=== PATIENT | female | born 1950 | race Caucasian/White ===

== ENCOUNTER 2016-10-08 10:36 | Emergency (ER) | payer MEDICARE, OTHER ==
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
[2016-10-08 14:01] VITALS: BP 132/67
== END 2016-10-08 13:58 | disposition home or self-care (01) ==
LOC: ER 10:36
DX: S16.1XXA Strain of muscle, fascia and tendon at neck level, initial encounter (principal); V49.60XA Unspecified car occupant injured in collision with unspecified motor vehicles in traffic accident, initial encounter; N64.59 Other signs and symptoms in breast
CPT/HCPCS: 72040; 99283

== ENCOUNTER → 2016-11-22 | Outpatient (CLI) | payer MEDICARE, OTHER | LOC: RAD 19:08 | PROVIDERS: ATTEND Nurse Practitioner Adult Health | DX: R91.1 Solitary pulmonary nodule (principal) | CPT/HCPCS: 78814; A9552 ==

== ENCOUNTER 2018-06-26 20:32 | Inpatient (IN) | payer MEDICARE, OTHER ==
[2018-06-26] MEDS ORDERED: RINGERS SOLUTION,LACTATED 1,000 ML IV ONE (20:50)
[2018-06-26] MEDS ORDERED: ONDANSETRON HCL INJ/PF 4 MG/2 ML SDV IV ONE (20:50)
[2018-06-26 20:57] LABS: ABSOLUTE EOSINOPHILS # (AUTO) 0.4 10^3/uL (0.0-0.6); ABSOLUTE LYMPHOCYTES (AUTO) 4.7 10^3/uL (0.5-4.7); ABSOLUTE MONOCYTES (AUTO) 0.9 10^3/uL (0.1-1.4); ABSOLUTE NEUT (AUTO) 4.5 10^3/uL (1.7-8.2); BASOPHILS % (AUTO) 0.3 % (0-2); EOSINOPHILS % (AUTO) 3.8 % (0-6); HEMATOCRIT 38.2 % (36.0-47.0); HEMOGLOBIN 13.3 g/dL (12.0-15.5); LYMPHOCYTES % (AUTO) 44.5 % (13-45); MEAN CORPUSCULAR HEMOGLOBIN 29.7 pg (27.0-33.4); MEAN CORPUSCULAR HGB CONC 34.8 g/dL (32.0-36.0); MEAN CORPUSCULAR VOLUME 86 fl (80-97); MONOCYTES % (AUTO) 8.5 % (3-13); PLATELET COUNT 371 10^3/uL (150-450); RED BLOOD COUNT 4.47 10^6/uL (3.72-5.28); RED CELL DISTRIBUTION WIDTH 13.1 % (11.5-14.0); SEGMENTED NEUTROPHILS % (AUTO) 42.9 % (42-78); TOTAL CELLS COUNTED % (AUTO) 100 %; WHITE BLOOD COUNT 10.5 10^3/uL (4.0-10.5)
[2018-06-26 21:10] LABS: ALANINE AMINOTRANSFERASE 27 U/L (9-52); ALBUMIN 4.5 g/dL (3.5-5.0); ALKALINE PHOSPHATASE 92 U/L (38-126); ANION GAP 11 (5-19); ASPARTATE AMINO TRANSFERASE 24 U/L (14-36); BILIRUBIN,DIRECT 0.4 mg/dL (0.0-0.4); BILIRUBIN,TOTAL 0.7 mg/dL (0.2-1.3); BLOOD UREA NITROGEN 24 mg/dL (7-20); CALCIUM 10.2 mg/dL (8.4-10.2); CARBON DIOXIDE 26 mmol/L (22-30); CHLORIDE 104 mmol/L (98-107); GLUCOSE 152 mg/dL (75-110); POTASSIUM 3.6 mmol/L (3.6-5.0); SODIUM 140.6 mmol/L (137-145); TOTAL PROTEIN 7.4 g/dL (6.3-8.2)
[2018-06-26] MEDS ORDERED: METOCLOPRAMIDE HCL INJ/PF 10 MG/2 ML SDV IV ONE (21:18)
--- NOTE | 2018-06-26 23:03 | ER Document Report ---
ED General - General Chief Complaint: Blood Pressure Problem Stated Complaint: DIZZINESS Time Seen by Provider: 06/26/18 20:46 Notes: Patient is a 67 year old female with a past medical history of hypertension, hyperlipidemia, diabetes, who presents with a sudden onset of vomiting and generalized abdominal pain. The patient is a poor historian, appears to be quite uncomfortable, unable to provide meaningful history. Daughter at the bedside reports that the patient was watching her children when the symptoms started. No history of similar symptoms in the past. Nothing seemed to improve or worsen the patient's symptoms. The patient notes a prior history of kidney stones that feels somewhat similar to this presentation. She does describe pain in her abdomen as being mostly towards the left side although generalized as a stabbing, severe pain. She has been unable to keep any fluids down since onset of her vomiting. TRAVEL OUTSIDE OF THE [place] IN LAST 30 DAYS: No - Related Data Allergies/Adverse Reactions: ANTIBACTERIAL SOAP Adverse Reaction (Intermediate, Uncoded 07/12/15 09:29) SKIN IRRITATION Past Medical History - General Information source: Patient - Social History Smoking Status: Current Every Day Smoker Chew tobacco use (# tins/day): No Frequency of alcohol use: None Drug Abuse: None Lives with: Family Family History: Reviewed & Not Pertinent Patient has suicidal ideation: No Patient has homicidal ideation: No - Past Medical History Cardiac Medical History: Reports: Hx Hypercholesterolemia Denies: Hx Coronary Artery Disease, Hx Heart Attack, Hx Hypertension Pulmonary Medical History: Reports: Hx Pneumonia Denies: Hx Asthma, Hx Bronchitis, Hx COPD Neurological Medical History: Denies: Hx Cerebrovascular Accident, Hx Seizures Endocrine Medical History: Reports: Hx Diabetes Mellitus Type 2 Renal/ Medical History: Denies: Hx Peritoneal Dialysis Musculoskeletal Medical History: Reports Hx Arthritis - HANDS Past Surgical History: Reports: Hx Hysterectomy - Immunizations Hx Diphtheria, Pertussis, Tetanus Vaccination: No Review of Systems - Review of Systems Notes: Constitutional: Negative for fever. HENT: Negative for sore throat. Eyes: Negative for visual changes. Cardiovascular: Negative for chest pain. Respiratory: Negative for shortness of breath. Gastrointestinal: Positive for abdominal pain and vomiting Genitourinary: Negative for dysuria. Musculoskeletal: Negative for back pain. Skin: Negative for rash. Neurological: Negative for headaches, weakness or numbness. 10 point ROS negative except as marked above and in HPI. Physical Exam - Vital signs Vitals: Resp 20 06/26/18 20:35 Interpretation: Tachycardic Notes: PHYSICAL EXAMINATION: GENERAL: Appears ill, quite uncomfortable, dry heaving HEAD: Atraumatic, normocephalic. EYES: Pupils equal round and reactive to light, extraocular movements intact, sclera anicteric, conjunctiva are normal. ENT: nares patent, oropharynx clear without exudates. Moderately dry mucous membranes. NECK: Normal range of motion, supple without lymphadenopathy LUNGS: Breath sounds clear to auscultation bilaterally and equal. No wheezes rales or rhonchi. HEART: Regular rate and rhythm without murmurs ABDOMEN: Soft, generalized abdominal tenderness to palpation appears to be most prominent over the left flank, normoactive bowel sounds. No guarding, no rebound. No masses appreciated. EXTREMITIES: Normal range of motion, no pitting or edema. No cyanosis. NEUROLOGICAL: No focal neurological deficits. Moves all extremities spontaneously and on command. PSYCH: Somewhat lethargic SKIN: Warm, Dry, normal turgor, no rashes or lesions noted. Course - Re-evaluation Re-evalutation: 06/26/18 23:01 Patient presents with an abrupt onset of nausea, vomiting, lightheadedness and feeling generally weak. On exam patient is actively vomiting, appears quite uncomfortable, pale, but vitals are within normal limits. She does have some generalized abdominal discomfort without any localization. No prior history of similar presentations in the past. Initially she apparently complained of a headache but now denies. There is a very broad differential in this case, less likely to be an acute subarachnoid hemorrhage or intraparenchymal bleed given the absence of any neurologic deficits in the absence of any ongoing headache. Will obtain a CT of the head to further clarify. 06/27/18 01:18 CT scan of the head is unremarkable. Patient CT scan of the abdomen pelvis does show a large, 1 cm partially obstructing left-sided kidney stone which would account for the patient's abrupt onset of generalized left-sided abdominal pain as well as vomiting. Unfortunately the patient does continue to be unable to tolerate even water despite antiemetics. On my most recent assessment she again vomiting. She is also requiring IV analgesia to maintain pain control. I have contacted the urologist wafer fabrication operator and I am awaiting callback. 06/27/18 02:28 has has returned my phone call, states the patient will require operative intervention. I have discussed with who has accepted for admission. - Vital Signs Vital signs: Temp Pulse Resp BP Pulse Ox 97.8 F 72 15 94/72 L 94 06/27/18 02:14 06/26/18 20:39 06/27/18 02:01 06/27/18 02:00 06/27/18 02:01 - Laboratory Result Diagrams: 06/26/18 20:30 06/26/18 20:30 Laboratory results interpreted by me: 06/26/18 06/27/18 20:30 00:03 BUN 24 H Glucose 152 H Urine Glucose (UA) 50 H - Diagnostic Test Radiology reviewed: Reports reviewed Discharge - Discharge Clinical Impression: Kidney stone on left side, Generalized abdominal pain Nausea and vomiting Qualifiers: Vomiting type: unspecified Vomiting Intractability: non-intractable Qualified Code(s): R11.2 - Nausea with vomiting, unspecified Condition: Fair Disposition: ADMITTED INPATIENT Admitting Provider: Hospitalist Unit Admitted: Telemetry Prescriptions: Morphine Sulfate [Morphine Ir 15 mg Tablet] 15 mg PO Q6HP PRN #8 tablet PRN Reason: Tamsulosin HCl [Flomax 0.4 mg Cap.sr] 0.4 mg PO DAILY #7 cap.sr.24h
--- NOTE | 2018-06-26 23:25 | RADIOLOGY REPORT (SQ) ---
EXAM DESCRIPTION: CT HEAD WITHOUT IV CONTRAST COMPLETED DATE/TME: 06/26/2018 21:33 CLINICAL HISTORY: n/v headache COMPARISON: None available TECHNIQUE: Axial CT of the head obtained from the skull apex to the skull base without contrast. FINDINGS: No acute intracranial hemorrhage identified. No mass, mass effect, shift of the midline, abnormal extra-axial fluid collection or CT evidence of acute ischemic change identified. The ventricular system and sulcal spaces have normal size and morphology. Scattered areas of hypodensity throughout the supratentorial white matter are nonspecific and may be related to chronic small vessel ischemic change. The visualized paranasal sinuses and the mastoids are clear. No skull fracture identified. 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 Visualized orbits and globes are unremarkable. Atherosclerotic calcification of the intracranial internal carotid arteries. DLP: 963.96 mGy-cm IMPRESSION: 1. No acute intracranial abnormality by CT criteria. This exam was performed according to our departmental dose-optimization program, which includes automated exposure control, adjustment of the mA and/or kV according to patient size and/or use of iterative reconstruction technique.
--- NOTE | 2018-06-26 23:35 | RADIOLOGY REPORT (SQ) ---
EXAM DESCRIPTION: CT ABDOMEN PELVIS WITH IV CONTRAST COMPLETED DATE/TME: 06/26/2018 00:00 CLINICAL HISTORY: Diffuse abdominal pain COMPARISON: None Available. TECHNIQUE: CT of the abdomen and pelvis performed following IV administration of 97 mL of Omnipaque 350. Portal venous and delayed phase imaging obtained. DLP: 1179.27 mGycm FINDINGS: Lung Bases: Minimal bilateral dependent atelectasis. Bones: No destructive bone lesions identified. Minimal endplate spondylosis. Mild dextroconvex curvature lumbar spine. Abdomen: Liver: The liver has normal size and density. No intrahepatic mass. There is mild dilatation of the common bile duct measuring 1.1 cm. No intrahepatic biliary dilatation. Gallbladder: No calcified gallstones. Spleen, Pancreas, and Adrenal Glands: The spleen, pancreas, and adrenal glands are unremarkable. Kidneys: Small Bosniak class I right renal cyst. There is a 1.0 cm partially obstructing calculus in the proximal left ureter producing mild left hydronephrosis. Nonobstructing left nephrolithiasis. Vasculature: Aortoiliac atherosclerosis. IVC is unremarkable. The portal vein is patent. The proximal visceral and renal arteries are patent. Stomach: The stomach and duodenum have normal course. Other: No free intraperitoneal air. No free fluid or lymphadenopathy. Pelvis: Bladder: Urinary bladder is unremarkable. Bowel: No dilated loops of large or small bowel. Scattered diverticula of the colon. Mild prominence of the wall of the descending colon may be related to underdistention. No significant pericolic inflammatory change. Appendix: Normal appendix. Pelvis: Prior hysterectomy. IMPRESSION: 1. There is a 1.0 cm partially obstructing calculus in the proximal left ureter producing mild left hydronephrosis. 2. Nonobstructing left nephrolithiasis. 3. Mild wall thickening of the descending and sigmoid colon without significant pericolic inflammatory change. This may be related to distention however early colitis could produce a similar appearance. 4. Diverticulosis without evidence of acute diverticulitis. 5. Mild dilatation of the common bile duct, measuring 1.1 cm, Without pancreatic duct or intrahepatic biliary dilatation. If there is concern for biliary obstruction MRCP could provide additional characterization. This exam was performed according to our departmental dose-optimization program, which includes automated exposure control, adjustment of the mA and/or kV according to patient size and/or use of iterative reconstruction technique.
[2018-06-27 00:26] LABS: APPEARANCE,URINE CLEAR; BILIRUBIN,URINE NEGATIVE (NEGATIVE); COLOR,URINE STRAW; GLUCOSE, URINE 50 mg/dL (NEGATIVE); KETONES,URINE NEGATIVE (NEGATIVE); LEUKOCYTE ESTERASE,URINE NEGATIVE (NEGATIVE); NITRITE,URINE NEGATIVE (NEGATIVE); PROTEIN,URINE NEGATIVE (NEGATIVE); URINE SPECIFIC GRAVITY 1.039; UROBILINOGEN,URINE NEGATIVE mg/dL (<2.0)
[2018-06-27] MEDS ORDERED: RINGERS SOLUTION,LACTATED 1,000 ML IV ONE (01:18)
[2018-06-27] MEDS ORDERED: ONDANSETRON ODT 4 MG TAB (6 TAB/ER DISP) PO PRN (01:24)
[2018-06-27] MEDS ORDERED: MORPHINE SULFATE IR 15 MG TABLET PO ONE (01:24)
[2018-06-27] MEDS ORDERED: KETOROLAC TROMETHAMINE INJ/PF 30 MG/1 ML SDV IV ONE (01:38)
[2018-06-27] MEDS ORDERED: ONDANSETRON HCL INJ/PF 4 MG/2 ML SDV IV ONE (01:38)
[2018-06-27] MEDS ORDERED: PROMETHAZINE HCL INJ 25 MG/1 ML VIAL IV PRN ×3 (03:19→16:40)
[2018-06-27] MEDS ORDERED: NORMAL SALINE 1000 ML 1,000 ML IV PRN (03:19)
[2018-06-27] MEDS ORDERED: PROMETHAZINE HCL 25 MG SUPP.RECT PR PRN ×2 (03:19→16:40)
[2018-06-27] MEDS ORDERED: ACETAMINOPHEN 325 MG TABLET PO PRN (03:19)
[2018-06-27] MEDS ORDERED: ACETAMINOPHEN 650 MG SUPP.RECT PR PRN (03:19)
[2018-06-27] MEDS ORDERED: FENTANYL CITRATE INJ/PF 100 MCG/2 ML AMPUL ONE (03:25)
[2018-06-27] MEDS ORDERED: MIDAZOLAM 2 MG/2 ML INJ ONE (03:26)
[2018-06-27] MEDS ORDERED: ONDANSETRON HCL INJ/PF 4 MG/2 ML SDV ONE (03:26)
[2018-06-27] MEDS ORDERED: MORPHINE SULFATE 10 MG/ML INJ ONE (03:26)
[2018-06-27] MEDS ORDERED: PROPOFOL INJ 200 MG/20 ML VIAL IV ONE (03:27)
[2018-06-27] MEDS ORDERED: GLUCAGON,HUMAN RECOMB 1 MG INJ IM PRN (03:35)
[2018-06-27] MEDS ORDERED: INSULIN LISPRO 100 UNIT/ML 3 ML VIAL SUBCUT PRN (03:35)
[2018-06-27] MEDS ORDERED: DEXTROSE 40% GEL 15 GM TUBE PO PRN ×2 (03:35)
[2018-06-27] MEDS ORDERED: DEXTROSE 50%-WATER 25 GM/50 ML DISP.SYRIN IV PRN ×2 (03:35)
--- NOTE | 2018-06-27 03:48 | PDOC H&P ---
History of Present Illness Admission Date/PCP: 06/27/2018 Patient complains of: Nausea and vomiting History of Present Illness: JENNIFER SMALLS is a 67 year old female who comes to the emergency department after he started with a sudden onset of nausea and nonbloody vomiting, the patient has been feeling really dizzy like passing out. Has been unable to hold any liquid or solid. Has generalized weakness and complains of infraumbilical abdominal pain more on the left side, nonradiating, crampy in nature, denies any flank pain. At home she initially complaining of left upper extremity numbness of sudden onset, daughter is at the bedside and she was concerned this could be a stroke and brought her to the emergency department. CT of the head negative. CT abdomen and pelvis was done secondary to her complaints of abdominal pain and it came back positive for 1.0 cm partially obstructing calculus in the proximal left ureter producing mild left hydronephrosis. Urology has been consulted and they are planning for surgery later on today. Patient has history of kidney stone May last year, she underwent surgery in [place], tells me she had 3 kidney stones but only 2 were removed. 2 L of IV fluids given in the ED. Denies fever, chills, shortness of breath, chest pain, dysuria, hematuria frequency Past Medical History Cardiac Medical History: Reports: Coronary Artery Disease, Hyperlipidema Pulmonary Medical History: Reports: Asthma, Bronchitis, Chronic Obstructive Pulmonary Disease (COPD), Pneumonia Neurological Medical History: Denies: Seizures Endocrine Medical History: Reports: Diabetes Mellitus Type 2 Musculoskeltal Medical History: Reports: Arthritis - HANDS Past Surgical History Past Surgical History: Reports: Hysterectomy Social History Smoking Status: Current Every Day Smoker Frequency of Alcohol Use: None Hx Recreational Drug Use: No Hx Prescription Drug Abuse: No Family History Family History: Reviewed & Not Pertinent Parental Family History Reviewed: No Children Family History Reviewed: NA Sibling(s) Family History Reviewed.: NA Medication/Allergy Home Medications: Metformin HCl [Glucophage] 500 mg PO DAILY 05/22/14 Simvastatin [Zocor 10 mg Tablet] 20 mg PO QHS 05/22/14 Omeprazole 40 mg PO DAILY 06/13/15 Naproxen Sodium [Naproxen Sodium ER] 500 mg PO Q12 PRN #20 tablet.sa 10/08/16 Tramadol HCl [Ultram 50 mg Tablet] 50 mg PO Q6HP PRN #40 tablet 10/08/16 Morphine Sulfate [Morphine Ir 15 mg Tablet] 15 mg PO Q6HP PRN #8 tablet Tamsulosin HCl [Flomax 0.4 mg Cap.sr] 0.4 mg PO DAILY #7 cap.sr.24h 06/27/18 Allergies/Adverse Reactions: ANTIBACTERIAL SOAP Adverse Reaction (Intermediate, Uncoded 07/12/15 09:29) SKIN IRRITATION Review of Systems Review of Systems: As outlined in the HPI, others negative Physical Exam Vital Signs: Temp Pulse Resp BP Pulse Ox 97.8 F 72 15 94/72 L 94 06/27/18 02:14 06/26/18 20:39 06/27/18 02:01 06/27/18 02:00 06/27/18 02:01 Intake & Output 06/25/18 06/26/18 06/27/18 06:59 06:59 06:59 Intake Total 1000 Balance 1000 Additional comments: General appearance: Well-developed, well-nourished, alert and cooperative, with persistent nausea and vomiting during my interview Head: Normocephalic Eyes: PEERL, EOMI, vision is grossly intact. Ears: External auditory canal and tympanic membranes clear, hearing grossly intact. Nose: No nasal discharge. Throat: Oral cavity and pharynx dry. No inflammation, swelling, exudate or lesions. Neck: Neck supple, nontender without lymphadenopathy, masses or thyromegaly. Cardiac: Normal S1 and S2. No S3, S4 or murmurs. Rhythm is regular. There is no peripheral edema, cyanosis or pallor. Extremities are warm and well perfused. Capillary refill is less than 2 seconds. No carotid bruits. Lungs: Clear to auscultation and percussion without rales, rhonchi, wheezing or diminished breath sounds. Not using accessory muscles. Abdomen: Positive bowel sounds. Soft. Nondistended, tenderness to palpation in the left infraumbilical area. No guarding or rebound. No masses. No hepatosplenomegaly. Negative bilateral CVA tenderness Extremities: No significant deformity or joint abnormality. No edema. Peripheral pulses intact. No varicosities. Neurological: Cranial nerves II through XII grossly intact. Strength and sensation symmetric and intact throughout. Reflexes 2+ throughout. Skin: Skin normal color, texture and turgor with no lesions or eruptions, warm and dry. Psychiatric: The mental examination revealed the patient was oriented to person , place, and time. The patient was able to demonstrate good judgment on recent , without hallucinations, abnormal affect or abnormal behaviors. Results Laboratory Results: 06/26/18 20:30 06/26/18 20:30 06/26/18 06/26/18 06/27/18 20:30 20:30 00:03 WBC 10.5 RBC 4.47 Hgb 13.3 Hct 38.2 MCV 86 MCH 29.7 MCHC 34.8 RDW 13.1 Plt Count 371 Seg Neutrophils % 42.9 Lymphocytes % 44.5 Monocytes % 8.5 Eosinophils % 3.8 Basophils % 0.3 Absolute Neutrophils 4.5 Absolute Lymphocytes 4.7 Absolute Monocytes 0.9 Absolute Eosinophils 0.4 Absolute Basophils 0.0 Sodium 140.6 Potassium 3.6 Chloride 104 Carbon Dioxide 26 Anion Gap 11 BUN 24 H Creatinine 0.84 Est GFR ( Amer) > 60 Est GFR (Non-Af Amer) > 60 Glucose 152 H Calcium 10.2 Total Bilirubin 0.7 AST 24 ALT 27 Alkaline Phosphatase 92 Total Protein 7.4 Albumin 4.5 Urine Color STRAW Urine Appearance CLEAR Urine pH 8.0 Ur Specific [place] 1.039 Urine Protein NEGATIVE Urine Glucose (UA) 50 H Urine Ketones NEGATIVE Urine Blood NEGATIVE Urine Nitrite NEGATIVE Ur Leukocyte Esterase NEGATIVE Urine WBC (Auto) 1 Urine RBC (Auto) 1 06/26/18 20:30 Troponin I < 0.012 Impressions: Abdomen/Pelvis CT 06/26/18 00:00 IMPRESSION: 1. There is a 1.0 cm partially obstructing calculus in the proximal left ureter producing mild left hydronephrosis. 2. Nonobstructing left nephrolithiasis. 3. Mild wall thickening of the descending and sigmoid colon without significant pericolic inflammatory change. This may be related to distention however early colitis could produce a similar appearance. 4. Diverticulosis without evidence of acute diverticulitis. 5. Mild dilatation of the common bile duct, measuring 1.1 cm, Without pancreatic duct or intrahepatic biliary dilatation. If there is concern for biliary obstruction MRCP could provide additional characterization. This exam was performed according to our departmental dose-optimization program, which includes automated exposure control, adjustment of the mA and/or kV according to patient size and/or use of iterative reconstruction technique. Head CT 06/26/18 21:33 IMPRESSION: 1. No acute intracranial abnormality by CT criteria. This exam was performed according to our departmental dose-optimization program, which includes automated exposure control, adjustment of the mA and/or kV according to patient size and/or use of iterative reconstruction technique. Assessment & Plan - Diagnosis (1) Kidney stone on left side Is this a current diagnosis for this admission?: Yes Plan: Patient comes to the emergency department with intractable nausea and vomiting, after workup done in the emergency department it was found a 1.0 cm partially obstructing calculus in the proximal left ureter producing mild left hydronephrosis. Urinalysis negative for acute infection however I will start the patient on IV Rocephin. Urology with Dr. Wheeler has been consulted and will take the patient to the OR later on today. Patient will remain n.p.o. IV fluids with normal saline running at 1 25 cc/h. IV antiemetics and IV pain medication as needed. Blood cultures 2 requested. (2) Diabetes mellitus type 2 in nonobese Is this a current diagnosis for this admission?: Yes Plan: Accu-Cheks q. before meals and at bedtime, insulin lispro sliding scale and hypoglycemia protocol. Metformin on hold. - Time Time Spent: 30 to 50 Minutes - Inpatient Certification Based on my medical assessment, after consideration of the patient's comorbidities, presenting symptoms, or acuity I expect that the services needed warrant INPATIENT care.: Yes I certify that my determination is in accordance with my understanding of Medicare's requirements for reasonable and necessary INPATIENT services [42 CFR 412.3e].: Yes Medical Necessity: Risk of Complication if Not Cared For in Hospital
[2018-06-27] MEDS ORDERED: PANTOPRAZOLE SODIUM 40 MG VIAL IV ONE (03:50)
[2018-06-27] MEDS ORDERED: CEFTRIAXONE 1 GM/D5W RTU 1 GM/50 ML RTUPB IV SCH (04:00)
[2018-06-27] MEDS ORDERED: CEFTRIAXONE INJ 1000 MG VIAL ONE (04:12)
--- NOTE | 2018-06-27 05:14 | Operative Report ---
Operative Report DATE OF SURGERY: 06/27/18 Operative Report: Cystoscopy left retrograde and insertion of double-J catheter PREOPERATIVE DIAGNOSIS: Obstructed left ureteral stone POSTOPERATIVE DIAGNOSIS: Same OPERATION: Cystoscopy left retrograde pyelogram and insertion of double-J catheter SURGEON: EDUARDO AYALA ANESTHESIA: GA TISSUE REMOVED OR ALTERED: None COMPLICATIONS: None ESTIMATED BLOOD LOSS: 0 INTRAOPERATIVE FINDINGS: There was hydronephrotic drip from the left side after insertion of the guidewire. PROCEDURE: The patient in the supine position after induction of general anesthesia the whole area prepped and scrubbed in lithotomy position. After that #21 cystoscope sheath was inserted bladder inspected normal mucosa left orifice identified a guidewire was inserted over a #5 ureteral catheter then after that retrograde was done under fluoroscopy. Then after that #20 the 6 4.8 the double -J catheter was inserted under fluoroscopy guidance. It was in good position and the hydronephrotic drip was seen to be coming from the left side. After the procedure the bladder was emptied patient tolerated procedure well.
[2018-06-27] MEDS ORDERED: MEPERIDINE HCL/PF INJ 25 MG/1 ML DISP.SYRIN IV PRN (05:18)
[2018-06-27] MEDS ORDERED: DIPHENHYDRAMINE HCL 50 MG/ML VIAL IV PRN (05:18)
[2018-06-27] MEDS ORDERED: FENTANYL CITRATE INJ/PF 100 MCG/2 ML AMPUL IV PRN ×3 (05:18)
[2018-06-27 06:59] LABS: ABSOLUTE LYMPHOCYTES (AUTO) 0.7 10^3/uL (0.5-4.7); ABSOLUTE MONOCYTES (AUTO) 0.3 10^3/uL (0.1-1.4); ABSOLUTE NEUT (AUTO) 6.1 10^3/uL (1.7-8.2); BASOPHILS % (AUTO) 0.3 % (0-2); HEMATOCRIT 35.9 % (36.0-47.0); HEMOGLOBIN 12.4 g/dL (12.0-15.5); LYMPHOCYTES % (AUTO) 9.3 % (13-45); MEAN CORPUSCULAR HEMOGLOBIN 29.3 pg (27.0-33.4); MEAN CORPUSCULAR HGB CONC 34.6 g/dL (32.0-36.0); MEAN CORPUSCULAR VOLUME 85 fl (80-97); MONOCYTES % (AUTO) 4.8 % (3-13); PLATELET COUNT 265 10^3/uL (150-450); RED BLOOD COUNT 4.23 10^6/uL (3.72-5.28); RED CELL DISTRIBUTION WIDTH 13.2 % (11.5-14.0); SEGMENTED NEUTROPHILS % (AUTO) 85.6 % (42-78); TOTAL CELLS COUNTED % (AUTO) 100 %; WHITE BLOOD COUNT 7.1 10^3/uL (4.0-10.5)
[2018-06-27 07:26] LABS: ANION GAP 8 (5-19); BLOOD UREA NITROGEN 14 mg/dL (7-20); CALCIUM 8.9 mg/dL (8.4-10.2); CARBON DIOXIDE 27 mmol/L (22-30); CHLORIDE 102 mmol/L (98-107); GLUCOSE 137 mg/dL (75-110); POTASSIUM 3.9 mmol/L (3.6-5.0); SODIUM 136.6 mmol/L (137-145)
[2018-06-27] MEDS: HEPARIN SOD (PORCINE) 5,000 UNIT/ML 1 ML SYRINGE SUBCUT SCH ×3 (07:59→22:58)
[2018-06-27] MEDS ORDERED: KETOROLAC TROMETHAMINE INJ/PF 30 MG/1 ML SDV IV SCH (09:00)
--- NOTE | 2018-06-27 09:07 | RADIOLOGY REPORT (SQ) ---
EXAM DESCRIPTION: PYELOGRAM RETROGRADE COMPLETED DATE/TIME: 06/27/2018 5:09 am REASON FOR STUDY: RETROGRADE PYELOGRAM LEFT STENT PLCMT IN CYSTO COMPARISON: CT ABDOMEN PELVIS 06/26/2018 FLUOROSCOPY TIME: 15 seconds 5 digital radiographic images saved to PACS. TECHNIQUE: Intra-operative images acquired during surgical procedure to evaluate progress. NUMBER OF IMAGES: 5 digital images LIMITATIONS: None. FINDINGS: Intra procedural imaging and fluoro during left retrograde ureteric g demonstrating fillin g defects in the ureter. Subsequent images demonstrate placement of a left double-J stent in good po sitioning, filling defects in the ureter no longer identified. Please see the operative report for f urther details IMPRESSION: Intra procedural imaging and fluoro COMMENT: Quality ID [id number]: Final reports for procedures using fluoroscopy that document radiation exp osure indices, or exposure time and number of fluorographic images (if radiation exposure indices are not available) Please consult full operative report of the attending physician for description of the procedure. TECHNICAL DOCUMENTATION: JOB ID: [id number] [facility]- All Rights Reserved Reading location - IP/workstation name: [email or web address]
[2018-06-27] MEDS ORDERED: SUCCINYLCHOLINE CHLORIDE INJ 200 MG/10 ML VIAL ONE (09:48)
[2018-06-27] MEDS: CEFTRIAXONE SODIUM 1,000 MG in NORMAL SALINE 50 ML IV SCH (10:41)
--- NOTE | 2018-06-27 12:42 | EKG REPORT ---
SEVERITY:- NORMAL ECG - SINUS RHYTHM : Confirmed by: Jackie Ching MD 27-Jun-2018 12:41:57
[2018-06-27] MEDS ORDERED: ONDANSETRON HCL INJ/PF 4 MG/2 ML SDV IV PRN (16:40)
--- NOTE | 2018-06-27 16:52 | Progress Note ---
Provider Note Provider Note: Hospitalist progress note: The patient was admitted after midnight. On my evaluation the patient was a little bit sleepy postoperatively. She tells me that her pain is significantly improved. She continues to have some nausea but she thinks that is improving also. She does not think she has urinated since surgery. She is not having chest pain or difficulty breathing. Her daughter is at bedside. Exam: She is lying in her hospital bed, tired appearing. She is however awake and oriented and in no acute distress. Emesis bag in her lap. Cephalic atraumatic, extraocular movements are intact, mucous membranes are dry, tongue is midline. Regular rate rhythm no murmurs rubs or gallops. Lungs are clear to auscultation bilaterally. Abdomen is soft nontender nondistended with normal bowel sounds. No edema in the distal legs. Skin is warm and dry. Assessment: This is a 67-year-old woman who has been taken to the OR by the urologist for a ureteral stone who is now feeling significantly better. Plan: We will liberalize her diet to whatever she desires at this time, she is nauseated and so would like to start with something easy like ice cream. We will continue her IV fluids and monitor her labs while she is feeling nauseated vomiting and not eating and drinking well. Will monitor her urine output for hematuria and for volume. Overall the patient is improved and hemodynamically stable.
[2018-06-27] MEDS: RINGERS SOLUTION,LACTATED 1,000 ML IV PRN (18:25)
[2018-06-28 05:26] LABS: ABSOLUTE BASOPHILS # (AUTO) 0.1 10^3/uL (0.0-0.2); ABSOLUTE EOSINOPHILS # (AUTO) 0.1 10^3/uL (0.0-0.6); ABSOLUTE LYMPHOCYTES (AUTO) 1.9 10^3/uL (0.5-4.7); ABSOLUTE MONOCYTES (AUTO) 0.8 10^3/uL (0.1-1.4); ABSOLUTE NEUT (AUTO) 5.8 10^3/uL (1.7-8.2); BASOPHILS % (AUTO) 0.7 % (0-2); EOSINOPHILS % (AUTO) 0.8 % (0-6); HEMATOCRIT 34.6 % (36.0-47.0); HEMOGLOBIN 12.2 g/dL (12.0-15.5); MEAN CORPUSCULAR HEMOGLOBIN 30.3 pg (27.0-33.4); MEAN CORPUSCULAR HGB CONC 35.4 g/dL (32.0-36.0); MEAN CORPUSCULAR VOLUME 86 fl (80-97); MONOCYTES % (AUTO) 9.1 % (3-13); PLATELET COUNT 256 10^3/uL (150-450); RED BLOOD COUNT 4.04 10^6/uL (3.72-5.28); RED CELL DISTRIBUTION WIDTH 13.2 % (11.5-14.0); SEGMENTED NEUTROPHILS % (AUTO) 67.4 % (42-78); TOTAL CELLS COUNTED % (AUTO) 100 %; WHITE BLOOD COUNT 8.6 10^3/uL (4.0-10.5)
[2018-06-28 06:08] LABS: ANION GAP 6 (5-19); BLOOD UREA NITROGEN 13 mg/dL (7-20); CARBON DIOXIDE 28 mmol/L (22-30); CHLORIDE 105 mmol/L (98-107); GLUCOSE 93 mg/dL (75-110); POTASSIUM 3.6 mmol/L (3.6-5.0); SODIUM 139.1 mmol/L (137-145)
[2018-06-28] MEDS: HEPARIN SOD (PORCINE) 5,000 UNIT/ML 1 ML SYRINGE SUBCUT SCH ×2 (06:10→13:37)
[2018-06-28] MEDS: RINGERS SOLUTION,LACTATED 1,000 ML IV PRN (06:22)
[2018-06-28] MEDS: CEFTRIAXONE SODIUM 1,000 MG in NORMAL SALINE 50 ML IV SCH (07:08)
[2018-06-28] MEDS ORDERED: CEFTRIAXONE SODIUM 1,000 MG in NORMAL SALINE 50 ML IV SCH (08:00)
[2018-06-28 15:34] VITALS: BP 128/58
--- NOTE | 2018-06-28 16:03 | PDOC CONSULTATION ---
Consultation Consult Date: 06/27/18 Attending physician:: EDUARDO AYALA History of Present Illness Admission Date/PCP: 06/27/18 03:38 History of Present Illness: JENNIFER SMALLS is a 67 year old female Past Medical History Cardiac Medical History: Reports: Hyperlipidema Denies: Coronary Artery Disease, Myocardial Infarction, Hypertension Pulmonary Medical History: Reports: Pneumonia Denies: Asthma, Bronchitis, Chronic Obstructive Pulmonary Disease (COPD) Neurological Medical History: Denies: Seizures Endocrine Medical History: Reports: Diabetes Mellitus Type 2 Musculoskeltal Medical History: Reports: Arthritis - HANDS Hematology: Denies: Anemia Past Surgical History Past Surgical History: Reports: Hysterectomy Social History Lives with: Family Smoking Status: Never Smoker Frequency of Alcohol Use: None Hx Recreational Drug Use: No Drugs: None Hx Prescription Drug Abuse: No - Advance Directive Resuscitation Status: Full Code Family History Family History: Reviewed & Not Pertinent Parental Family History Reviewed: No Children Family History Reviewed: No Sibling(s) Family History Reviewed.: No Medication/Allergy Home Medications: Metformin HCl [Glucophage 500 mg Tablet] 500 mg PO DAILY 06/27/18 Simvastatin [Zocor 20 mg Tablet] 20 mg PO QHS 06/27/18 Cefdinir [Omnicef 300 mg Capsule] 1 cap PO BID 3 Days #30 capsule 06/28/18 Allergies/Adverse Reactions: ANTIBACTERIAL SOAP Adverse Reaction (Intermediate, Uncoded 07/12/15 09:29) SKIN IRRITATION Physical Exam Vital Signs: Temp Pulse Resp BP Pulse Ox 98.8 F 80 18 128/58 H 98 06/28/18 15:31 06/28/18 15:31 06/28/18 15:31 06/28/18 15:31 06/28/18 15:31 Intake & Output 06/27/18 06/28/18 06/29/18 06:59 06:59 06:59 Intake Total 650 1200 425 Balance 650 1200 425 Weight 55 kg 55 kg Results Laboratory Results: 06/28/18 05:13 06/28/18 05:13 06/28/18 06/28/18 05:13 05:13 WBC 8.6 RBC 4.04 Hgb 12.2 Hct 34.6 L MCV 86 MCH 30.3 MCHC 35.4 RDW 13.2 Plt Count 256 Seg Neutrophils % 67.4 Lymphocytes % 22.0 Monocytes % 9.1 Eosinophils % 0.8 Basophils % 0.7 Absolute Neutrophils 5.8 Absolute Lymphocytes 1.9 Absolute Monocytes 0.8 Absolute Eosinophils 0.1 Absolute Basophils 0.1 Sodium 139.1 Potassium 3.6 Chloride 105 Carbon Dioxide 28 Anion Gap 6 BUN 13 Creatinine 0.80 Est GFR ( Amer) > 60 Est GFR (Non-Af Amer) > 60 Glucose 93 Calcium 9.0 Impressions: Abdomen/Pelvis CT 06/26/18 00:00 IMPRESSION: 1. There is a 1.0 cm partially obstructing calculus in the proximal left ureter producing mild left hydronephrosis. 2. Nonobstructing left nephrolithiasis. 3. Mild wall thickening of the descending and sigmoid colon without significant pericolic inflammatory change. This may be related to distention however early colitis could produce a similar appearance. 4. Diverticulosis without evidence of acute diverticulitis. 5. Mild dilatation of the common bile duct, measuring 1.1 cm, Without pancreatic duct or intrahepatic biliary dilatation. If there is concern for biliary obstruction MRCP could provide additional characterization. This exam was performed according to our departmental dose-optimization program, which includes automated exposure control, adjustment of the mA and/or kV according to patient size and/or use of iterative reconstruction technique. Head CT 06/26/18 21:33 IMPRESSION: 1. No acute intracranial abnormality by CT criteria. This exam was performed according to our departmental dose-optimization program, which includes automated exposure control, adjustment of the mA and/or kV according to patient size and/or use of iterative reconstruction technique. Retrograde Pyelogram 06/27/18 00:00 IMPRESSION: Intra procedural imaging and fluoro Assessment & Plan - Diagnosis (1) Kidney stone on left side Is this a current diagnosis for this admission?: Yes - Plan Summary Plan Summary: Recent to be admitted and taken to the operating room for cystoscopy left retrograde and insertion of double-J catheter.
--- NOTE | 2018-06-28 16:36 | PDOC DISCHARGE SUMMARY ---
General - Admit/Disc Date/PCP Admission Date/Primary Care Provider: 06/27/18 03:38 Discharge Date: 06/28/18 - Discharge Diagnosis (1) Nausea and vomiting Is this a current diagnosis for this admission?: Yes Summary: This was secondary to kidney stone. Patient was on antiemetics and IV fluids and now she is much improved. Wound has been treated and she has a double-J stent in place. She is not eating and drinking and being discharged home in stable condition. (2) Kidney stone on left side Is this a current diagnosis for this admission?: Yes Summary: Patient went to the OR with the urologist. She now has a double-J stent in place. The urologist would like to keep her on antibiotics per their protocol for several days postop and so she will be discharged on Omnicef for 3 more days , she has already received 2 days of ceftriaxone. Per the urologist patient will need to find a urologist locally to have her stent reevaluated within the week and so are clear we will try to make that appointment for her, if we cannot find a urologist we will contact her primary care doctor for further assistance. She knows to return to medical care with any concerning symptoms. (3) Diabetes mellitus type 2 in nonobese Is this a current diagnosis for this admission?: Yes Summary: Patient will discharge on her home diabetic medications. (4) Generalized abdominal pain Is this a current diagnosis for this admission?: Yes Summary: Resolved with treatment of stone and resolution of nausea and vomiting. No need for pain medications for discharge. - Additional Information Resuscitation Status: Full Code Discharge Diet: As Tolerated Discharge Activity: Balance Activity w/Rest Prescriptions: Cefdinir [Omnicef 300 mg Capsule] 1 cap PO BID 3 Days #30 capsule Home Medications: Metformin HCl [Glucophage 500 mg Tablet] 500 mg PO DAILY 06/27/18 Simvastatin [Zocor 20 mg Tablet] 20 mg PO QHS 06/27/18 Cefdinir [Omnicef 300 mg Capsule] 1 cap PO BID 3 Days #30 capsule 06/28/18 History of Present Illness History of Present Illness: JENNIFER SMALLS is a 67 year old woman who comes to the emergency department after he started with a sudden onset of nausea and nonbloody vomiting, the patient has been feeling really dizzy like passing out. Has been unable to hold any liquid or solid. Has generalized weakness and complains of infraumbilical abdominal pain more on the left side, nonradiating, crampy in nature, denies any flank pain. At home she initially complaining of left upper extremity numbness of sudden onset, daughter is at the bedside and she was concerned this could be a stroke and brought her to the emergency department. CT of the head negative. CT abdomen and pelvis was done secondary to her complaints of abdominal pain and it came back positive for 1.0 cm partially obstructing calculus in the proximal left ureter producing mild left hydronephrosis. Urology has been consulted and they are planning for surgery later on today. Patient has history of kidney stone May last year, she underwent surgery in [place], tells me she had 3 kidney stones but only 2 were removed. 2 L of IV fluids given in the ED. Denies fever, chills, shortness of breath, chest pain, dysuria, hematuria frequency Hospital Course Hospital Course: please see problems list Physical Exam Vital Signs: Temp Pulse Resp BP Pulse Ox 98.8 F 80 18 128/58 H 98 06/28/18 15:31 06/28/18 15:31 06/28/18 15:31 06/28/18 15:31 06/28/18 15:31 Intake & Output 06/27/18 06/28/18 06/29/18 06:59 06:59 06:59 Intake Total 650 1200 1408 Balance 650 1200 1408 Weight 55 kg 55 kg General appearance: PRESENT: no acute distress, cooperative Head exam: PRESENT: atraumatic, normocephalic Eye exam: PRESENT: EOMI. ABSENT: conjunctival injection, scleral icterus Ear exam: PRESENT: normal external ear exam Mouth exam: PRESENT: moist Respiratory exam: PRESENT: clear to auscultation fe, unlabored. ABSENT: rales , rhonchi, wheezes Cardiovascular exam: PRESENT: RRR, systolic murmur Pulses: PRESENT: normal radial pulses GI/Abdominal exam: PRESENT: normal bowel sounds, soft. ABSENT: distended, guarding, tenderness Rectal exam: PRESENT: deferred Extremities exam: ABSENT: pedal edema Musculoskeletal exam: PRESENT: ambulatory Neurological exam: PRESENT: alert, awake, oriented to person, oriented to place , oriented to situation, CN II-XII grossly intact Psychiatric exam: PRESENT: appropriate affect. ABSENT: anxious Skin exam: PRESENT: dry, intact, warm Results Laboratory Results: 06/28/18 05:13 06/28/18 05:13 06/28/18 06/28/18 05:13 05:13 WBC 8.6 RBC 4.04 Hgb 12.2 Hct 34.6 L MCV 86 MCH 30.3 MCHC 35.4 RDW 13.2 Plt Count 256 Seg Neutrophils % 67.4 Lymphocytes % 22.0 Monocytes % 9.1 Eosinophils % 0.8 Basophils % 0.7 Absolute Neutrophils 5.8 Absolute Lymphocytes 1.9 Absolute Monocytes 0.8 Absolute Eosinophils 0.1 Absolute Basophils 0.1 Sodium 139.1 Potassium 3.6 Chloride 105 Carbon Dioxide 28 Anion Gap 6 BUN 13 Creatinine 0.80 Est GFR ( Amer) > 60 Est GFR (Non-Af Amer) > 60 Glucose 93 Calcium 9.0 Impressions: Abdomen/Pelvis CT 06/26/18 00:00 IMPRESSION: 1. There is a 1.0 cm partially obstructing calculus in the proximal left ureter producing mild left hydronephrosis. 2. Nonobstructing left nephrolithiasis. 3. Mild wall thickening of the descending and sigmoid colon without significant pericolic inflammatory change. This may be related to distention however early colitis could produce a similar appearance. 4. Diverticulosis without evidence of acute diverticulitis. 5. Mild dilatation of the common bile duct, measuring 1.1 cm, Without pancreatic duct or intrahepatic biliary dilatation. If there is concern for biliary obstruction MRCP could provide additional characterization. This exam was performed according to our departmental dose-optimization program, which includes automated exposure control, adjustment of the mA and/or kV according to patient size and/or use of iterative reconstruction technique. Head CT 06/26/18 21:33 IMPRESSION: 1. No acute intracranial abnormality by CT criteria. This exam was performed according to our departmental dose-optimization program, which includes automated exposure control, adjustment of the mA and/or kV according to patient size and/or use of iterative reconstruction technique. Retrograde Pyelogram 06/27/18 00:00 IMPRESSION: Intra procedural imaging and fluoro Qualifiers - * PATIENT BEING DISCHARGED WITH ANY OF THE FOLLOWING DIAGNOSIS: No
== END 2018-06-28 16:41 | disposition home or self-care (01) | DRG 661 ==
LOC: ER 20:32 → EH 06-27 03:38 → 3S 06-27 06:15
PROVIDERS: ADMIT Internal Medicine; ATTEND Internal Medicine
PROC: BT1FZZZ Fluoroscopy of Left Kidney, Ureter and Bladder (ICD-10-PCS; 2018-06-27)
PROC: 0T7 Urinary System, Dilation (ICD-10-PCS; principal; 2018-06-27 04:00)
DX: N20.0 Calculus of kidney (principal); E11.9 Type 2 diabetes mellitus without complications; K57.30 Diverticulosis of large intestine without perforation or abscess without bleeding; E78.00 Pure hypercholesterolemia, unspecified; M19.042 Primary osteoarthritis, left hand; M19.041 Primary osteoarthritis, right hand; I25.10 Atherosclerotic heart disease of native coronary artery without angina pectoris; J44.9 Chronic obstructive pulmonary disease, unspecified; F17.210 Nicotine dependence, cigarettes, uncomplicated; Z90.710 Acquired absence of both cervix and uterus
CPT/HCPCS: 36415; 70450; 74177; 74420; 80048; 80053; 81001; 82962; 84484; 85025; 87040; 910; 93005; 93010; 96361; 96374; 96375; 99285; C1769; C2617; J0330; J0696; J1644; J1885; J2250; J2270; J2405; J2704; J2765; J3010; S0164

== ENCOUNTER 2018-12-31 08:37 | Day surgery (SDC) | payer MEDICARE, OTHER ==
[~2018-12-31 08:37] MED LIST: BUPIVACAINE HCL 0.75% INJ/PF (7.5 MG/1 ML) 10 ML SDV OS PRN; KETOROLAC TROMETHAMINE 0.45% 4 DROP/0.4 ML DROPERETTE OS PRN; LIDOCAINE 4% INJ/PF (40 MG/ML) 5 ML AMPUL OS PRN
[2018-12-31] MEDS ORDERED: CHONDR SU A NA/HYALUR INTRAOC KIT (SURGICARE) ONE (09:07)
[2018-12-31] MEDS ORDERED: EPINEPHRINE INJ/PF 1 MG/1 ML AMPULE ONE (09:07)
[2018-12-31] MEDS ORDERED: LIDOCAINE 1% INJ-PF (10 MG/ML) 30 ML SDV ONE (09:07)
[2018-12-31] MEDS: CYCLOPENTOLATE 0.2%/PHENYLEPHRINE 1% OPH SOLN 2 ML OS PRN ×3 (09:25→09:50)
[2018-12-31] MEDS: BESIFLOXACIN HCL 0.6% OPH SUSP 5 ML BOTTLE OS PRN ×4 (09:25→10:27)
[2018-12-31] MEDS: TETRACAINE HCL 0.5% OPH SOLN 0.6 ML DROPERETTE OS PRN ×2 (09:25→09:50)
[2018-12-31] MEDS: TROPICAMIDE 1% OPH SOLN 3 ML OS PRN ×3 (09:25→09:50)
[2018-12-31] MEDS ORDERED: MIDAZOLAM 2 MG/2 ML INJ ONE (09:35)
[2018-12-31] MEDS: DORZOLAMIDE HCL 2%/TIMOLOL MALEAT 0.5% OPH SOLN 10 ML OS PRN ×2 (10:18→10:27)
--- NOTE | 2018-12-31 10:58 | [facility] OPERATIVE REPORT E ---
[facility] Operative Report NAME: JENNIFER SMALLS AGE: 68Y DATE OF SURGERY: 12/31/2018 ROOM: PREOPERATIVE DIAGNOSIS: Cataract, left eye. POSTOPERATIVE DIAGNOSIS: Cataract, left eye. PROCEDURE PERFORMED: Phacoemulsification with posterior chamber intraocular lens, left eye. SURGEON: ANNIE RAUSCH M.D. ANESTHESIA: Topical with MAC. INDICATIONS FOR SURGERY: Difficulty reading and driving. PROCEDURE: The patient was brought to the Operating Room and placed on the operative table. Following tetracaine drops, topical anesthesia was administered. This consisted of instrument wipe pledgets soaked in a solution of 4% Xylocaine mixed with 0.75% Marcaine in a 1:2 ratio. A 2 x 1 cm pledget was placed in the superior fornix. A 1 x 1 cm pledget was placed in the inferior fornix. The eye was patched shut for 5 minutes. The patch was removed. The eye was sterilely prepped and draped in the usual manner. Lid speculum was placed in the eye. The pledgets were removed. 4-0 black silk sutures were placed around the superior and the inferior rectus muscles to be used as traction. A conjunctival peritomy was made at the 10 o'clock position. Hemostasis was obtained with bipolar cautery. A posterior limbal groove was created using a crescent knife and dissected anteriorly towards the cornea. A sharp point blade was used to create a paracentesis site at the 2 o'clock position. A 2.4 mm keratome was used to enter the anterior chamber through the groove. Viscoelastic was injected into the anterior chamber. An anterior capsulotomy was performed using Utrata forceps in a capsulorrhexis fashion. Hydrodissection and hydrodelineation were performed. Phacoemulsification was performed in [id number] technique. A total of 48 seconds phaco time was used. Following this, the I/A unit was used to remove residual cortex. Viscoelastic was injected into the capsular bag. Intraocular lens model ZCB00, 33.0 diopters, serial number [id number] was placed in the capsular bag. The I/A unit was used to remove residual viscoelastic. The wound was seen to be watertight under high and low pressure, and no sutures were placed. The intraocular lens was well centered. The pressure was adjusted in the eye to normal pressure. The 4-0 black silk sutures and lid speculum were removed. The eye was shielded after Besivance drops were placed. The patient tolerated the procedure well and was sent to the Recovery Room in good condition. DICTATING PHYSICIAN: ANNIE RAUSCH M.D. [id number] PHY#: [id number] ID: [id number] JOB#: [id number] ACCT: [id number] cc:ANNIE RAUSCH M.D. > MTDD
--- NOTE | 2018-12-31 10:59 | [facility] DISCHARGE SUMMARY E ---
[facility] Discharge Summary NAME: JENNIFER SMALLS AGE: 68Y ADMITTED: 12/31/2018 DISCHARGED: 12/31/2018 HOSPITAL COURSE: The patient is a 68-year-old lady who underwent uneventful cataract extraction with intraocular lens implant, left eye, on 12/31/2018. She will be discharged to home. She is instructed to resume preoperative medications, to take Tylenol as needed for discomfort, keep her eye shielded, to use Besivance, Prolensa, and Durezol at 3 p.m. and 8 p.m., and to follow up in my office in 1 day. DICTATING PHYSICIAN: ANNIE RAUSCH M.D. [id number] PHY#: [id number] ID: [id number] JOB#: [id number] ACCT: [id number] cc:ANNIE RAUSCH M.D. >
== END 2018-12-31 11:24 | disposition home or self-care (01) ==
LOC: SC 08:37
PROVIDERS: ATTEND Ophthalmology
DX: H25.12 Age-related nuclear cataract, left eye (principal); Z79.84 Long term (current) use of oral hypoglycemic drugs; R73.03 Prediabetes
CPT/HCPCS: 66984; 82962; V2632; J2250; J3490 ×4; A9270; J0171; 142

== ENCOUNTER 2019-01-19 10:17 | Day surgery (SDC) | payer MEDICARE, OTHER ==
[~2019-01-19 10:17] MED LIST changes: +BUPIVACAINE HCL 0.75% INJ/PF (7.5 MG/1 ML) 10 ML SDV OD PRN; -BUPIVACAINE HCL 0.75% INJ/PF (7.5 MG/1 ML) 10 ML SDV OS PRN; +DORZOLAMIDE HCL 2%/TIMOLOL MALEAT 0.5% OPH SOLN 10 ML OD PRN; +EPINEPHRINE INJ/PF 1 MG/1 ML AMPULE ONE; +KETOROLAC TROMETHAMINE 0.45% 4 DROP/0.4 ML DROPERETTE OD PRN; -KETOROLAC TROMETHAMINE 0.45% 4 DROP/0.4 ML DROPERETTE OS PRN; +LIDOCAINE 1% INJ-PF (10 MG/ML) 30 ML SDV ONE; +LIDOCAINE 4% INJ/PF (40 MG/ML) 5 ML AMPUL OD PRN; -LIDOCAINE 4% INJ/PF (40 MG/ML) 5 ML AMPUL OS PRN
[2019-01-19] MEDS: BESIFLOXACIN HCL 0.6% OPH SUSP 5 ML BOTTLE OD PRN ×3 (11:05→12:08)
[2019-01-19] MEDS: CYCLOPENTOLATE 0.2%/PHENYLEPHRINE 1% OPH SOLN 2 ML OD PRN ×3 (11:05→11:26)
[2019-01-19] MEDS: TROPICAMIDE 1% OPH SOLN 3 ML OD PRN ×3 (11:05→11:26)
[2019-01-19] MEDS: TETRACAINE HCL 0.5% OPH SOLN 0.6 ML DROPERETTE OD PRN ×2 (11:06→11:26)
[2019-01-19] MEDS ORDERED: MIDAZOLAM 2 MG/2 ML INJ ONE ×2 (11:47→12:20)
[2019-01-19] MEDS ORDERED: FENTANYL CITRATE INJ/PF 100 MCG/2 ML AMPUL ONE ×2 (11:47→12:20)
[2019-01-19] MEDS ORDERED: PROPOFOL INJ 200 MG/20 ML VIAL IV ONE (12:20)
--- NOTE | 2019-01-19 12:59 | [facility] OPERATIVE REPORT E ---
[facility] Operative Report NAME: JENNIFER SMALLS AGE: 68Y DATE OF SURGERY: 01/19/2019 ROOM: PREOPERATIVE DIAGNOSIS: CATARACT, RIGHT EYE. POSTOPERATIVE DIAGNOSIS: CATARACT, RIGHT EYE. PROCEDURE PERFORMED: PHACOEMULSIFICATION WITH POSTERIOR CHAMBER INTRAOCULAR LENS, RIGHT EYE. SURGEON: ANNIE RAUSCH MD ANESTHESIA: TOPICAL WITH MAC. INDICATIONS FOR SURGERY: Difficulty reading road signs. PROCEDURE: The patient was brought to the Operating Room and placed on the operative table. Following tetracaine drops, topical anesthesia was administered. This consisted of instrument wipe pledgets soaked in a solution of 4% Xylocaine mixed with 0.75% Marcaine in a 1:2 ratio. A 2 x 1 cm pledget was placed in the superior fornix. A 1 x 1 cm pledget was placed in the inferior fornix. The eye was patched shut for 5 minutes. The patch was removed. The eye was sterilely prepped and draped in the usual manner. Lid speculum was placed in the eye. The pledgets were removed. 4-0 black silk sutures were placed around the superior and the inferior rectus muscles to be used as traction. A conjunctival peritomy was made at the 10 o'clock position. Hemostasis was obtained with bipolar cautery. A posterior limbal groove was created using a crescent knife and dissected anteriorly towards the cornea. A sharp point blade was used to create a paracentesis site at the 2 o'clock position. A 2.4 mm keratome was used to enter the anterior chamber through the groove. Viscoelastic was injected into the anterior chamber. An anterior capsulotomy was performed using Utrata forceps in a capsulorrhexis fashion. Hydrodissection and hydrodelineation were performed. Phacoemulsification was performed in [id number] technique. A total of 7.85 CDE seconds phaco time was used. Following this, the I/A unit was used to remove residual cortex. Viscoelastic was injected into the capsular bag. Intraocular lens model ZCB00, 27.5 diopters, serial number [id number] was placed in the capsular bag. The I/A unit was used to remove residual viscoelastic. The wound was seen to be watertight under high and low pressure, and no sutures were placed. The intraocular lens was well centered. The pressure was adjusted in the eye to normal pressure. The 4-0 black silk sutures and lid speculum were removed. The eye was shielded after Besivance drops were placed. The patient tolerated the procedure well and was sent to the Recovery Room in good condition. DICTATING PHYSICIAN: ANNIE RAUSCH M.D. DICTATING PHYSICIAN: ANNIE RAUSCH M.D. [id number] PHY#: [id number] ID: [id number] JOB#: [id number] ACCT: [id number] cc:ANNIE RAUSCH M.D. >
--- NOTE | 2019-01-19 12:59 | [facility] DISCHARGE SUMMARY E ---
[facility] Discharge Summary NAME: JENNIFER SMALLS AGE: 68Y ADMITTED: 01/19/2019 DISCHARGED: 01/19/2019 FINAL DIAGNOSIS: CATARACT, RIGHT EYE HOSPITAL COURSE: The patient is a 68-year-old lady who underwent uneventful cataract extraction with intraocular lens implant, right eye on 01/19/2019. She will be discharged to home. She is instructed to resume preoperative medications, take Tylenol as needed for discomfort, to keep her eye shielded, to use Besivance, Durezol and PROLENSA at 3 p.m. and 8 p.m., and to follow up in my office in 1 day. DICTATING PHYSICIAN: ANNIE RAUSCH M.D. [id number] PHY#: [id number] ID: [id number] JOB#: [id number] ACCT: [id number] cc:ANNIE RAUSCH M.D. >
[2019-01-19] MEDS ORDERED: CHONDR SU A NA/HYALUR INTRAOC KIT (SURGICARE) ONE (14:06)
== END 2019-01-19 13:01 | disposition home or self-care (01) ==
LOC: SC 10:17
PROVIDERS: ATTEND Ophthalmology
DX: H25.11 Age-related nuclear cataract, right eye (principal); Z96.1 Presence of intraocular lens; H18.51 Endothelial corneal dystrophy; E11.9 Type 2 diabetes mellitus without complications; Z79.84 Long term (current) use of oral hypoglycemic drugs
CPT/HCPCS: 66984; 82962; V2632; J2250; J3490 ×4; A9270; J0171; J3010; J2704; 142